=== PATIENT | male | born 1975 | race Caucasian/White ===

== ENCOUNTER → 2018-11-10 | Outpatient (CLI) | payer BC ==
--- NOTE | 2018-11-10 12:59 | KCIC ---
EXAM: Abdomen sonogram. HISTORY: Elevated liver enzymes laboratory values. TECHNIQUE: Sonographic imaging of the abdomen was performed. COMPARISON: None. FINDINGS: The liver is enlarged. There is hepatic steatosis. No focal hepatic lesion is seen. The common bile duct is normal in caliber. The gallbladder is unremarkable. The right kidney is unremarkable. The aorta, pancreas and inferior vena cava are partially obscured. IMPRESSION: 1. Hepatomegaly and hepatic steatosis. 2. Partially obscured midline structures due to bowel gas. Electronically signed by: Joaquina Vinson MD (11/10/2018 12:56 PM) [place] [id number]
== END | disposition home or self-care (01) ==
LOC: KCIC US 08:03
PROVIDERS: ATTEND Nurse Practitioner Family
DX: R16.0 Hepatomegaly, not elsewhere classified (principal); K76.0 Fatty (change of) liver, not elsewhere classified; R74.8 Abnormal levels of other serum enzymes
CPT/HCPCS: 76705

== ENCOUNTER → 2020-08-19 | Outpatient (CLI) | payer BC ==
--- NOTE | 2020-08-19 12:54 | KCIC ---
MR LUMBAR SPINE WO [id number] Date: 08/19/2020 8:10 AM Indication: Low back pain. Pt bent over in Feb, now chronic pain Lt leg. Comparison: None. Technique: Multi-planar multi-weighted magnetic resonance imaging of the lumbar spine was performed w ithout intravenous contrast using the standard lumbar spine protocol. FINDINGS: The lumbar spine is normally aligned. No acute fracture. Mild multilevel degenerative disc desiccatio n and disc height loss. Nonspecific T1 hypointense marrow signal, which can be seen with smoking, ane kian, or obesity. The conus terminates at a normal level. No abnormal signal is seen within the visualized distal spina l cord. No clumping of intrathecal nerve roots. No soft tissue abnormality in the visualized abdomen or pelvis. T12-L1: No disc bulge. No facet arthropathy. No significant spinal stenosis or neural foraminal narro wing. L1-L2: No disc bulge. No facet arthropathy. No significant spinal stenosis or neural foraminal narrow ing. L2-L3: No disc bulge. No facet arthropathy. No significant spinal stenosis or neural foraminal narrow ing. L3-L4: No disc bulge. No facet arthropathy. No significant spinal stenosis or neural foraminal narrow ing. L4-L5: Disc bulge with annular tear and left paracentral protrusion. Mild facet arthropathy. No spina l stenosis. Mild left lateral recess narrowing. Mild left neural foraminal narrowing. L5-S1: Disc bulge. Mild facet arthropathy. No significant spinal stenosis. Mild left neural foraminal narrowing. IMPRESSION: Mild degenerative changes at L4-5 and L5-S1 as detailed above. Electronically signed by: Amrik Caal MD (08/19/2020 12:52 PM) [id number]
== END ==
LOC: KCIC MRI 07:59
PROVIDERS: ATTEND Nurse Practitioner Family
DX: M47.817 Spondylosis without myelopathy or radiculopathy, lumbosacral region (principal); M48.07 Spinal stenosis, lumbosacral region; M51.26 Other intervertebral disc displacement, lumbar region
CPT/HCPCS: 72148